=== PATIENT | male | born 1965 | race Caucasian/White ===

== ENCOUNTER 2018-04-03 11:26 | Day surgery (SDC) | payer MEDICAID ==
--- NOTE | ~2018-04-03 | OP ---
PATIENT NAME: OMAR MONTENEGRO MEDICAL RECORD: [id number] :63 [facility] AD[facility]ION DATE: SURGEON: BRIELLE BRYANT MD DATE OF OPERATION: 04/03/2018 PREOPERATIVE DIAGNOSIS: Partial amputation of the left thumb, ulnar aspect. POSTOPERATIVE DIAGNOSIS: Partial amputation of the left thumb, ulnar aspect. PROCEDURES: 1. Excisional debridement of partial amputation. 2. Replant of the amputated tissue. SURGEON: Brielle Bryant MD ANESTHESIA: General. INTRAOPERATIVE COMPLICATIONS: None. Fortunately, the patient had taken a large flap of skin on the volar ulnar aspect of his left thumb and placed it in a bag on ice immediately at the time of his injury, which I think made it possible to try and replant this tissue. Otherwise, he would have to have an amputation back to the IP joint of the thumb and I hope that this will likely not be the case. SUMMARY OF PATHOLOGIC FINDINGS: The patient had a laceration across the germinal matrix of the nail bed, requiring nail bed removal and excision of residual nail bed matrix. The large section of tissue that he had brought in was in good condition. It was soaked briefly in Betadine. This was rinsed and then this was reapproximated after trimming some of the fat. OPERATIVE SUMMARY IN DETAIL: After obtaining the appropriate preoperative orthopedic surgery consent as well as anesthetic consultation, evaluation, and clearance, the patient was brought to the operating room and placed on the operating table in supine position. After general laryngeal mask airway was administered, tourniquet was placed on the proximal aspect of left upper extremity. Left upper extremity was then prepped and draped in routine sterile fashion. Arm was elevated and exsanguinated. Tourniquet was inflated to 250 mmHg. The area was immediately debrided of all nonviable-appearing tissue. The residual thumbnail was removed and the eponychial fold was excised, what was left of it. At any rate, it does appear that a second row with the blade went directly across the germinal matrix at the eponychial fold. At this point, the amputated skin, which was a large section, was trimmed up at the area of the saw lines. A small portion now was removed from it and then serially and sequentially sewed in with interrupted 4-0 Prolene back to its position. All in all, it looks fairly decent after the tourniquet was let down. Good bleeding was seen at the area of replant. A nonstick Adaptic was placed with 4 x 4 and this was covered with tube gauze. The tourniquet was deflated. The patient was awakened and taken to recovery room in stable condition. All final needle and sponge counts were correct. TRANSINT:[id number] Voice Confirmation ID: [id number] DOCUMENT ID: [id number] 04/06/2018 Edited per yahaira knutson. OPERATIVE REPORT [id number] OMAR MONTENEGRO MD, BRIELLE LORENZO at 1349 CC: [id number] DICTATION DATE: 04/03/18 1427 [facility] HELPER: 04/03/18 1532 [facility] 04/03/[address] [address]
[2018-04-03 13:18] LABS: BASOPHILS 0.4 % (0-2); EOSINOPHILS 1.3 % (0-7); HEMATOCRIT 38.9 % (42.0-54.0); HEMOGLOBIN 12.8 g/dL (13.5-17.5); IMMATURE GRANULOCYTES 0.1 % (0-5); LYMPHOCYTES 23.7 % (15-50); MCHC 32.9 g/dL (31.0-37.0); MCV 91.1 fL (80.0-100.0); MEAN PLATELET VOLUME 10.4 fL (7.4-10.4); MONOCYTES 6.4 % (2-11); NEUTROPHILS 68.1 % (40-80); PLATELET COUNT 276 10x3/uL (130-400); RBC 4.27 10x6/uL (4.20-6.10); RDW 11.7 % (11.5-14.5); WBC 7.2 10x3/uL (4.8-10.8)
[2018-04-03 13:25] LABS: APTT 36.2 SECONDS (22.8-39.4); INR 1.14 (0.85-1.17); PROTIME 14.2 SECONDS (11.6-15.0)
[2018-04-03 13:32] LABS: ANION GAP 11.5 mmol/L (8-16); BILIRUBIN - TOTAL 0.15 mg/dL (0.2-1.3); CALCIUM 9.4 mg/dL (8.5-10.1); CARBON DIOXIDE 28.8 mmol/L (21.0-32.0); CREATININE - SERUM 1.1 mg/dL (0.6-1.3); POTASSIUM - SERUM 4.3 mmol/L (3.5-5.1); PROTEIN - SERUM 8.2 g/dL (6.4-8.2)
[2018-04-03] MEDS ORDERED: BACTRIM DS TABL1 TAB PO (14:23)
[2018-04-03] MEDS ORDERED: HYDROCODONE-APA1 TAB PO (14:23)
== END 2018-04-03 17:00 | disposition home or self-care (01) ==
LOC: D.ER 11:26 → D.OPS 11:26
PROVIDERS: Physician Assistant
DX: S68.522A Partial traumatic transphalangeal amputation of left thumb, initial encounter (principal); W31.2XXA Contact with powered woodworking and forming machines, initial encounter; Z01.812 Encounter for preprocedural laboratory examination